=== PATIENT | male | born 1995 ===

== ENCOUNTER → 2017-01-19 | Outpatient (REF) | LOC: WSOH 10:51 | DX: Z02.1 Encounter for pre-employment examination (principal) ==

== ENCOUNTER → 2017-01-19 | Outpatient (REF) | LOC: WSOH 15:04 | DX: Z02.89 Encounter for other administrative examinations (principal) ==

== ENCOUNTER → 2017-01-21 | Outpatient (REF) | LOC: WSOH 01-19 13:38 | DX: Z02.89 Encounter for other administrative examinations (principal) ==